=== PATIENT | male | born 1950 | race Caucasian/White ===

== ENCOUNTER 2016-05-22 17:47 | Emergency (ER) | payer OTHER ==
--- NOTE | 2016-05-22 19:15 | ED ---
Throat Pain/Nasal Congestion - HPI Summary HPI Summary: 65 male presents accompanied by his cousin with complaints of left eye discharge , swelling and pain and painless bilateral blurred vision that began a week ago and has been worsening. Patient's blurred vision began in left eye 1 week ago however 3 days ago the right eye began to become blurry as well. The left eye's blurred vision began after the swelling, redness and discharge of his lower lid. He states the discharge is pus like and both eyes are irritating. He sees an eye doctor who told him his "vision would go soon". He has known cataracts in both eyes. He denies complete vision loss and pain. Denies contacts and glasses. Admits to borderline diabetes that is uncontrolled and COPD. History was difficult to obtain due to patients mental capacity. Denies itchiness, photophobia, headache, numbness/tingling, weakness, dizziness and nausea. Denies getting anything into his and does not feel like there is anything in his eye. - History of Current Complaint Chief Complaint: EDEyeProblem Time Seen by Provider: 05/22/16 18:33 Hx Obtained From: Patient, Family/Telecommunications Line Mechanic - cousin Onset/Duration: Gradual Onset, Lasting Weeks, Still Present, Worse Since Severity: Mild Associated Signs And Symptoms: Positive: Negative Cough: None - Allergies/Home Medications Allergies/Adverse Reactions: Allergies Allergy/AdvReac Type Severity Reaction Status Date / Time Hydromorphone [From Dilaudid] AdvReac Mild See Comment Verified 05/22/16 17:52 PMH/Surg Hx/FS Hx/Imm Hx Endocrine/Hematology History: Reports: Hx Diabetes Cardiovascular History: Reports: Hx Congestive Heart Failure, Hx Hypertension, Other Cardiovascular Problems/Disorders - LT.BUNDLE BRANCH BLOCK & EF BELOW 20% (05/23) Denies: Hx Pacemaker/ICD Respiratory History: Reports: Hx Chronic Obstructive Pulmonary Disease (COPD), Other Respiratory Problems/Disorders - SOB Denies: Hx Asthma GI History: Denies: Other GI Disorders History: Denies: Hx Renal Disease Sensory History: Reports: Hx Contacts or Glasses - NO GLASSES TODAY. PT DOES NOT WEAR THEM Denies: Hx Hearing Aid Opthamlomology History: Reports: Hx Cataracts, Hx Contacts or Glasses - NO GLASSES TODAY. PT DOES NOT WEAR THEM Psychiatric History: Denies: Hx Panic Disorder - Surgical History Surgery Procedure, Year, and Place: pt seems drowsy - Immunization History Date of Tetanus Vaccine: PT STATES UNSURE Date of Influenza Vaccine: NONE Infectious Disease History: No Infectious Disease History: Denies: Traveled Outside the [place] in Last 30 Days - Family History Known Family History: Positive: Unknown - Social History Alcohol Use: None Alcohol Amount: states he quit 04/2013 Hx Substance Use: No Substance Use Type: Reports: None Hx Tobacco Use: No Smoking Status (MU): Never Smoked Tobacco Review of Systems Constitutional: Negative Positive: Blurred Vision, Drainage, Erythema, Other - swelling right eye ENT: Negative Cardiovascular: Negative Respiratory: Negative Gastrointestinal: Negative Musculoskeletal: Negative Skin: Negative Neurological: Negative Psychological: Normal All Other Systems Reviewed And Are Negative: Yes Physical Exam Triage Information Reviewed: Yes Vital Signs On Initial Exam: Initial Vitals Temp Pulse Resp BP Pulse Ox 97.8 F 104 20 170/102 98 05/22/16 17:52 05/22/16 17:52 05/22/16 17:52 05/22/16 17:52 05/22/16 17:52 BP noted, will be re-checked and monitored. strongly encouraged follow up with pcp as this and diabetes may be causing the vision changes. tachycardia also noted. Vital Signs Reviewed: Yes Appearance: Positive: Well-Appearing, No Pain Distress, Well-Nourished Skin: Positive: Warm, Skin Color Reflects Adequate Perfusion, Dry Head/Face: Positive: Normal Head/Face Inspection Eyes: Positive: EOMI, JENNI, Conjunctiva Inflammed, Discharge - appears to be a hordeolum, edema of lower left eye lid, internal and palpable. smooth edematous surface noted on inner lower conjunctiva. right eye normal external exam. difficult to obtain fundoscopic and slit lamp exam due to small pupil size. no emergent eye issues are apparent besides hordeolum at this time. patient had difficulty with visual acuity. no signs of acute angle glaucome or retinal detachment, possibly suffering from diabetic or hypertensive retinopathy. ENT: Positive: Normal ENT inspection, Hearing grossly normal, Pharynx normal, TMs normal Neck: Positive: Supple, Nontender, No Lymphadenopathy Respiratory/Lung Sounds: Positive: Clear to Auscultation, Breath Sounds Present Cardiovascular: Positive: Normal, RRR, Pulses are Symmetrical in both Upper and Lower Extremities Bowel Sounds: Positive: Present Musculoskeletal: Positive: Normal, Strength/ROM Intact Neurological: Positive: Normal, Sensory/Motor Intact, Alert, Oriented to Person Place, Time, CN Intact II-III, Reflexes Intact, NV Bundle Intact Distally, Normal Gait - escorted when walking due to blurred vision, Finger to Nose - abnormal, very slow, Facial Symmetry, Speech Normal, Other - patient appears to suffer from some MR. Negative: Facial Droop Psychiatric: Positive: Normal, Affect/Mood Appropriate - [place] Coma Scale Best Eye Response: 4 - Spontaneous Best Motor Response: 6 - Obeys Commands Best Verbal Response: 5 - Oriented Coma Scale Total: 15 Diagnostics - Vital Signs Vital Signs Temp Pulse Resp BP Pulse Ox 05/22/16 17:52 97.8 F 104 20 170/102 98 - Laboratory Lab Statement: Any lab studies that have been ordered have been reviewed, and results considered in the medical decision making process. - CT brain CT Interpretation: No Acute Changes - No intracranial mass or hemorrhage is noted. Opacification of the maxillary sinuses bilaterally. CT Interpretation Completed By: Radiologist EENT Course/Dx - Course Course Of Treatment: CT Brain ordered to rule out neurologic etiologies/tumors. Unable to assess fundoscopic exam due to the pupil size. CT negative. Hordeloum noted in left eye and will be treated with warm compresses, antibiotic ointment and follow up. Patient will be referred to optho for further evaluation of chronic worsening blurred vision, appears to be diabetic or hypertensive retinopathy. Patient did not appear to have any emergent eye problems, glaucoma , retinal detachment, etc at this time. educated and aware of worsening signs and symptoms to watch out for and to return if occur. follow up with pcp for hypertension. - Differential Diagnoses Differential Diagnoses: Conjunctivitis, Detached Retina, Foreign Body, Glaucoma , Keratitis, Uveitis, Other - Diagnoses Provider Diagnoses: Hordeolum externum left lower eyelid, Blurred vision, bilateral Discharge - Discharge Plan Condition: Stable Disposition: HOME Prescriptions: Polymyx/Trimethoprim OPTH* [Polytrim OPHTH*] 1 drop LEFT EYE Q3H #1 btl Patient Education Materials: [place] (ED) Referrals: Rafael Damico MD [Medical Doctor] - Tono Partida MD [Primary Care Provider] - Additional Instructions: Use prescribed eye medication to help with eye infection. Use hot compresses on eye every 15 minutes multiple time daily. Follow up with your eye doctor this week, call to make an appointment. Do not drive while your vision is blurry. If you lose your vision, new symptoms occur or you have worsening symptoms please seek medical attention promptly. Try and keep your fingers out of your eyes. Change pillow cases and wash towel to prevent spread of infection. Follow up with PCP for high blood pressure reading and today's visit.
--- NOTE | 2016-05-22 20:21 | RAD ---
Indication: Blurry vision. CT of the brain was performed without IV contrast. Ventricular structures are midline. No midline shift is noted. The extraction spaces are unremarkable. There is no evidence of intracranial mass or hemorrhage. No other high or low density lesions are identified. Maxillary sinuses demonstrate opacification bilaterally. No prior study is available for comparison. IMPRESSION: No intracranial mass or hemorrhage is noted. Opacification of the maxillary sinuses bilaterally.
[2016-05-22 20:50] VITALS: BP 165/77
== END 2016-05-22 20:49 | disposition home or self-care (01) ==
LOC: ED 17:47
DX: H00.015 Hordeolum externum left lower eyelid (principal); H53.8 Other visual disturbances
CPT/HCPCS: 70450; 99282

== ENCOUNTER 2016-12-20 08:35 | Inpatient (IN) | payer OTHER ==
[2016-12-20] MEDS ORDERED: Acetaminophen TAB* 325 MG PO PRN (13:23)
[2016-12-20] MEDS ORDERED: Magnesium Hydroxide LIQ* 30 ML UDC PO PRN (13:23)
[2016-12-20] MEDS ORDERED: Bisacodyl SUPP* 10 MG SUPP PR PRN (13:23)
[2016-12-20] MEDS ORDERED: Al Hydrox/Mg Hydrox/Simet LIQ* 30 ML UDC PO PRN (13:23)
[2016-12-20] MEDS ORDERED: Senna TAB PO PRN (13:23)
[2016-12-20] MEDS ORDERED: Albuterol 2.5 MG/3 ML NEB.SOL* (0.083%) INH PRN (13:39)
[2016-12-20] MEDS ORDERED: Dextrose 50% Syringe 50 ML* 25 GM/50 ML SYRINGE IV PUSH PRN (13:41)
[2016-12-20] MEDS ORDERED: HYDROcodone/ACETAMIN 5-325 MG* 1 TAB PO PRN (13:42)
--- NOTE | 2016-12-20 15:42 | HP ---
CC: Dr. Partida; Dr. Leach; Dr. Parker REHABILITATION ADMISSION: DATE OF ADMISSION: 12/20/16 PRIMARY CARE PROVIDER: Dr. Partida. MIXER OPERATOR RAW SALT: Dr. Leach. CARDIAC SURGEON: Dr. Parker at [facility]. REASON FOR ADMISSION: Status post 4-vessel coronary artery bypass grafts and non- ST elevation DE. HISTORY OF PRESENT ILLNESS: This is a 66-year-old man with COPD, who presented to [facility] on 12/10[facility]16 with headache, dizziness, chest pain, and shortness of breath. He was diagnosed with non-ST elevation myocardial infarction and also started empirically on antibiotics for pneumonia. Cardiac catheterization showed 3-vessel disease and his troponins peaked at 4.2. He was transferred to [facility] on 12/12/16 to consider further interventions. Carotid Doppler on 12/13/16 showed right internal carotid artery stenosis at 50% to 69% and left internal carotid artery stenosis 0% to 49 %. Antibiotics were stopped. He was taken to the OR on 12/13/16 for coronary artery bypass graft x4 - Sequential left internal mammary artery to the LAD, diagonal and sequential saphenous vein graft to the distal circumflex and high marginal. Postoperatively, he required dobutamine to try to keep his heart rate up and was noted to have third-degree AV block. A pacemaker was therefore placed on 12/16/16. Chest x-ray on 12/17/16 showed bilateral pleural effusions. He was diuresed. With Occupational Therapy, he has required a min- to-mod assistance for toileting and was noted to lose balance, requiring moderate amount of assistance to prevent falling. With Physical Therapy, he was transferring with contact guard assistance and ambulating with minimum assistance without any assistive device because he is legally blind. He was able to do 2 steps with contact guard assistance. Prior to admission, he was independent with mobility and activity of daily living, although his land lady who lives with in the same mobile home did assist him with medications and at times meals. At discharge, he was started on Plavix for acute coronary syndrome. During his stay, metformin was restarted for diabetes management and it was advised that he could restart Nesina which he was on preoperatively. He is to stay on a low- cholesterol diet. PAST MEDICAL HISTORY: 1. Coronary artery disease, status post 4-vessel CABG. See history of present illness. 2. History of AV block, status post pacemaker. See history of present illness. 3. COPD. 4. Cardiomyopathy with congestive heart failure. Most recent ejection fraction 30%. 5. Hypertension. 6. Hyperlipidemia. 7. Msq-pjutmbl-nmberjzrp diabetes mellitus. 8. 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 MEDICATIONS: 1. Metformin 500 mg b.i.d. 2. Demadex 10 mg Friday through Friday. 3. Vitamin B1 100 mg every day. 4. Aldactone 12.5 mg every day. 5. Nesina 25 mg every day. 6. Coreg 25 mg b.i.d. 7. Plavix 75 mg every day. 8. Lisinopril 5 mg every day. 9. Albuterol nebulizer q.4 hours p.r.n. 10. Lispro sliding scale insulin. 11. Adair 5/325 q.4 hours p.r.n. pain. 12. Tylenol p.r.n. pain. 13. Milk of magnesia p.r.n. 14. Senna 2 tablets every day. 15. Lipitor 80 mg every day. 16. Protonix 40 mg every day. 17. Multivitamin every day. 18. Aspirin 81 mg every day. 19. Digoxin 0.125 mg every day. 20. Mucinex 600 mg b.i.d. 21. Ativan 0.5 mg t.i.d. he was receiving, but this was not ordered with his discharge medications. Per his niece, this was helpful in dealing with some of his anxiety around procedures. ALLERGIES: HYDROMORPHONE causes rash. FAMILY HISTORY: Significant for coronary artery disease and hyperlipidemia. SOCIAL HISTORY: He lives in [place] in a trailer with his land lady. There are four steps to enter the trailer and then it is one level. He is not a smoker and does not drink alcohol. 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 Healthcare proxies include his brother, sister, and niece if he cannot make decisions for himself. Those papers are in file with the hospital already. REVIEW OF SYSTEMS: See history of present illness and past medical history. The remainder of the 13-system review was completed. No significant findings. PHYSICAL EXAMINATION GENERAL: Well-developed, well-nourished, appearing stated age. VITAL SIGNS: Temperature 98.2, pulse 80, respirations 20, oxygenation 98% on room air, blood pressure 115/70. HEENT: Normocephalic, atraumatic. Oropharynx is clear. Moist mucous membranes. LUNGS: Clear to auscultation bilaterally. HEART: Regular rate and rhythm. ABDOMEN: Active bowel sounds, soft, nontender, nondistended. EXTREMITIES: No clubbing or cyanosis. He does have bilateral lower extremity edema. NEUROLOGICAL EXAM: 5/5 strength bilateral upper and lower extremities with normal sensation, although he has limited testing of proximal upper extremity muscles due to sternal precautions and pacemaker precautions. MENTAL STATUS: No acute distress. Alert and appropriate. SKIN: His sternal incision is clean, dry, and intact. There is just minimal mild erythema distally. It is glued. The distal aspect of the saphenous vein graft site in his right leg was visualized and also appears benign. He has a dressing over his left chest from pacemaker implantation that is clean, dry, and intact. IMPRESSION: A 66-year-old man, status post 4-vessel CABG, NSTEMI, who is legally blind, chronic obstructive pulmonary disease and diabetes mellitus, who will be admitted to [facility], so he can return to independent living. PLAN: 1. Coronary artery disease, status post NSTEMI, 4v CABG and pacemaker placement. Continue with pacemaker and sternal precautions. Continue with current medications. He has followup with Dr. Parker on December 26 at 1 p.m. He is also to follow up with Dr. Leach in [address] Partida in 2 weeks. 2. Auv-jwmqpkj-ymhovivmh diabetes mellitus. Continue metformin and restart Nesina if it is available in this hospital. Check fingersticks q.a.c. and q.h.s. and cover with sliding insulin. If his fingersticks are stable, we may stop the insulin and fingersticks. 3. Hypertension. Continue with current medications. 4. Lower extremity edema. We will Tyrell wrap his legs and continue with his diuretic regimen. He is on appropriate medications already for a history of congestive heart failure and cardiomyopathy. 5. Chronic obstructive pulmonary disease and pleural effusions. Oxygen as needed. Continue with nebulizers as needed. 6. Anxiety. Ativan prn 7. Impaired mobility. He will be seen by Physical Therapy for bed mobility, transfer, gait, and stair training. Family will be trained if appropriate. 8. Impaired self-care. He will be seen by Occupational Therapy for ADL training and equipment evaluation. 9. Question impaired cognition. He does not read, but this at least partially is due to blindness. For guidance on how he may best be helped at discharge, we will ask for Speech Therapy to evaluate his cognitive status, so we can give better guidance on assistance he may need at discharge. He already has assistance with medications. 10. Advance directives. He does not want to be resuscitated. This was discussed with him and his niece and landlady who are in the room. Healthcare proxies on file with his brother, sister, and niece all named. 11. Estimated length of stay is 7 to 10 days. [id number]/CPS #: [id number] MTDD
[2016-12-20] MEDS: Torsemide TAB* 20 MG PO SCH (15:46)
[2016-12-20] MEDS: Atorvastatin* 80 MG TAB PO SCH (17:42)
[2016-12-20] MEDS: Insulin LISPRO* 1 UNITS UNIT SUBCUT SCH ×2 (17:42→21:10)
[2016-12-20] MEDS: LORazepam TAB(*) 0.5 MG PO PRN (17:43)
[2016-12-20] MEDS: metFORMIN* 500 MG TAB PO SCH (17:43)
[2016-12-20] MEDS: Docusate CAP* 100 MG PO SCH (19:43)
[2016-12-20] MEDS: Carvedilol TAB* 25 MG PO SCH (21:32)
[2016-12-20] MEDS: guaiFENesin ER TAB 600 MG PO SCH (21:32)
[2016-12-20] MEDS: Heparin VIAL(*) 5000 UNITS/ML VIAL (FIVE THOUSAND) SUBCUT SCH (21:33)
[2016-12-21] MEDS: LORazepam TAB(*) 0.5 MG PO PRN (01:15)
[2016-12-21 08:44] LABS: Hematocrit 33 % (42-52); Mean Corpuscular HGB Conc 34 g/dl (31-36); Mean Corpuscular Hemoglobin 31 pg (27-31); Mean Corpuscular Volume 91 fL (80-94); Mean Platelet Volume 9 um3 (7.4-10.4); Red Blood Count 3.58 10^6/ul (4.0-5.4); Red Cell Distribution Width 15 % (10.5-15); White Blood Count 8.8 10^3/ul (3.5-10.8)
[2016-12-21] MEDS ORDERED: ALOGLIPTIN 25 MG PO SCH (09:00)
[2016-12-21 09:03] LABS: Albumin 3.7 g/dL (3.2-5.2); BUN/Creatinine Ratio 16.2 (8-20); Calcium 9.6 mg/dL (8.6-10.3); EGFR African American 67.8 (>60); EGFR Non-African American 52.8 (>60); Globulin 3.5 g/dL (2-4); Potassium 4.1 mmol/L (3.5-5.0); Total Bilirubin 0.9 mg/dL (0.2-1.0); Total Protein 7.2 g/dL (6.4-8.9)
[2016-12-21] MEDS: Multivitamins/Minerals TAB PO SCH ×2 (09:05→12:22)
[2016-12-21] MEDS: Lisinopril TAB* 5 MG PO SCH (09:05)
[2016-12-21] MEDS: guaiFENesin ER TAB 600 MG PO SCH ×3 (09:06→21:10)
[2016-12-21] MEDS: Spironolactone TAB* 25 MG PO SCH (09:06)
[2016-12-21] MEDS: Carvedilol TAB* 25 MG PO SCH ×2 (09:11→21:10)
[2016-12-21] MEDS: metFORMIN* 500 MG TAB PO SCH ×2 (09:11→17:09)
[2016-12-21] MEDS: Aspirin EC Low Dose* 81 MG TAB.EC PO SCH (09:11)
[2016-12-21] MEDS: CMCS Pantoprazole TAB (NF) 40 MG TAB PO SCH (09:13)
[2016-12-21] MEDS: Digoxin TAB* 0.125 MG PO SCH (09:13)
[2016-12-21] MEDS: Clopidogrel TAB* 75 MG PO SCH (09:14)
[2016-12-21] MEDS: Docusate CAP* 100 MG PO SCH ×2 (09:14→20:06)
[2016-12-21] MEDS: Heparin VIAL(*) 5000 UNITS/ML VIAL (FIVE THOUSAND) SUBCUT SCH ×2 (10:23→21:08)
[2016-12-21] MEDS: Insulin LISPRO* 1 UNITS UNIT SUBCUT SCH ×4 (10:23→21:19)
--- NOTE | 2016-12-21 11:01 | PN ---
Progress Note - Progress Note Date of Service: 12/21/16 Note: Nursing and therapy note reviewed. Still completing evaluations, but passed speech cognitive screen. Denies any pain. He really wants to go home [place]. No chest pain, shortness of breath or abdominal pain. Bandar taylorugh in nesina. Acetaminophen (Tylenol Tab*) 650 mg PO Q6H PRN PRN Reason: FEVER > 101 Hydrocodone Bitart/Acetaminophen ([place] 5-325 Tab*) 1 tab PO Q4H PRN PRN Reason: PAIN Al Hydrox/Mg Hydrox/Simethicone (Maalox Plus*) 30 ml PO Q6H PRN PRN Reason: INDIGESTION Albuterol (Ventolin 2.5 Mg/3 Ml Neb.Tayler*) 2.5 mg INH Q4H PRN PRN Reason: SOB/WHEEZING Alogliptin Benzoate (Nesina (Nf)) 25 mg PO DAILY [facility] PRN Reason: Protocol Aspirin (Aspirin Ec Low Dose*) 81 mg PO DAILY [facility] Last Admin: 12/21/16 09:11 Dose: 81 mg Atorvastatin Calcium (Lipitor*) 80 mg PO 1700 [facility] Last Admin: 12/20/16 17:42 Dose: 80 mg Bisacodyl (Dulcolax Supp*) 10 mg CO DAILY PRN PRN Reason: CONSTIPATION Carvedilol (Coreg Tab*) 25 mg PO BID [facility] Last Admin: 12/21/16 09:11 Dose: 25 mg Clopidogrel Bisulfate (Plavix Tab*) 75 mg PO DAILY [facility] Last Admin: 12/21/16 09:14 Dose: 75 mg Dextrose (D50w Syringe 50 Ml*) 12.5 gm IV PUSH .FOR FS < 60 - SS PRN PRN Reason: FS < 60 Digoxin (Lanoxin Tab*) 0.125 mg PO 0900 [facility] Last Admin: 12/21/16 09:13 Dose: 0.125 mg Docusate Sodium (Colace Cap*) 100 mg PO BID [facility] Last Admin: 12/21/16 09:14 Dose: 100 mg Guaifenesin (Mucinex*) 600 mg PO BID [facility] Last Admin: 12/20/16 21:32 Dose: 600 mg Heparin Sodium (Porcine) (Heparin Vial(*)) 5,000 units SUBCUT Q12HR [facility] Last Admin: 12/21/16 10:23 Dose: 5,000 units Insulin Human Lispro (Humalog*) 1 units SUBCUT ACHS [facility] PRN Reason: Protocol Last Admin: 12/21/16 10:23 Dose: Not Given Lisinopril (Prinivil Tab*) 5 mg PO DAILY [facility] Last Admin: 12/21/16 09:05 Dose: 5 mg Lorazepam (Ativan Tab(*)) 0.5 mg PO TID PRN PRN Reason: ANXIETY Last Admin: 12/21/16 01:15 Dose: 0.5 mg Magnesium Hydroxide (Milk Of Magnesia Liq*) 30 ml PO Q6H PRN PRN Reason: CONSTIPATION Metformin HCl (Glucophage*) 500 mg PO 0800,1700 [facility] Last Admin: 12/21/16 09:11 Dose: 500 mg Multivitamins/Minerals (Theragran/Minerals Tab*) 1 tab PO DAILY [facility] Pantoprazole Sodium (Protonix Tab (Nf)) 40 mg PO DAILY [facility] Last Admin: 12/21/16 09:13 Dose: 40 mg Senna (Senokot Tab*) 2 tab PO BEDTIME PRN PRN Reason: CONSTIPATION Spironolactone (Aldactone Tab*) 12.5 mg PO DAILY [facility] Last Admin: 12/21/16 09:06 Dose: 12.5 mg Thiamine HCl (Vitamin B-1 Tab*) 100 mg PO DAILY [facility] Torsemide (Demadex*) 10 mg PO [id number]@0900 [facility] Last Admin: 12/20/16 15:46 Dose: 10 mg Vital Signs Temp Pulse Resp BP Pulse Ox 98.4 F 81 18 148/72 99 12/21/16 05:13 12/21/16 05:13 12/21/16 08:09 12/21/16 05:13 12/21/16 08:00 fingersticks 145-184 PE: GEN: no acute distress. alert and appropriate. LUNGS: clear bilaterally. CV: regular rate and rhythm. ABD: + bowel sounds, soft, non-tender, non-distended EXT: mild bilateral LE edema. unchanged. Refusing JUAN A or TEDs Laboratory Results - last 24 hr 12/20/16 12/20/16 12/20/16 13:15 16:32 20:52 WBC RBC Hgb Hct MCV MCH MCHC RDW Plt Count MPV Neut % (Auto) Lymph % (Auto) Holmes % (Auto) Eos % (Auto) Baso % (Auto) Absolute Neuts (auto) Absolute Lymphs (auto) Absolute Monos (auto) Absolute Eos (auto) Absolute Basos (auto) Absolute Nucleated RBC Nucleated RBC % Sodium Potassium Chloride Carbon Dioxide Anion Gap BUN Creatinine Est GFR ( Amer) Est GFR (Non-Af Amer) BUN/Creatinine Ratio Glucose POC Glucose (mg/dL) 167 H 184 H 145 H Calcium Total Bilirubin AST ALT Alkaline Phosphatase Total Protein Albumin Globulin Albumin/Globulin Ratio 12/21/16 12/21/16 12/21/16 07:46 08:35 08:35 WBC 8.8 RBC 3.58 L Hgb 11.0 L Hct 33 L MCV 91 MCH 31 MCHC 34 RDW 15 Plt Count 220 MPV 9 Neut % (Auto) 69.4 Lymph % (Auto) 12.6 L Holmes % (Auto) 12.7 H Eos % (Auto) 4.5 Baso % (Auto) 0.8 Absolute Neuts (auto) 6.1 Absolute Lymphs (auto) 1.1 Absolute Monos (auto) 1.1 H Absolute Eos (auto) 0.4 Absolute Basos (auto) 0.1 Absolute Nucleated RBC 0 Nucleated RBC % 0 Sodium 138 Potassium 4.1 Chloride 101 Carbon Dioxide 28 Anion Gap 9 BUN 22 Creatinine 1.36 H Est GFR ( Amer) 67.8 Est GFR (Non-Af Amer) 52.8 BUN/Creatinine Ratio 16.2 Glucose 146 H POC Glucose (mg/dL) 154 H Calcium 9.6 Total Bilirubin 0.90 AST 20 ALT 10 Alkaline Phosphatase 59 Total Protein 7.2 Albumin 3.7 Globulin 3.5 Albumin/Globulin Ratio 1.1 IMPRESSION/PLAN: 66yo man s/p NSTEMI, 4v CABG with COPD and DM. #CAD: f/u after discharge. To shower daily with soap and water #DM: start nesina today. on metformin. If FS better can d/c SSI and decrease FS frequency #Renal insufficiency: I reviewed labs from [facility] and Cr was as high as 1.7. On it was 1.2. His is now on less aggressive diuresis. f/u Cr friday. #Anxiety: ativan prn #DVT prophyllaxis: sc heparin. #Advanced Directives: DNR. Brother, sister and niece are HCPs. #Estimated LOS: to be discussed in interdisciplinary plan of care meeting today.
[2016-12-21] MEDS: ALOGLIPTIN 25 MG PO SCH (12:21)
[2016-12-21] MEDS: Thiamine TAB* 100 MG TAB PO SCH (12:23)
--- NOTE | 2016-12-21 12:27 | PMRUTEAM ---
PMRU: Goals Current Status: Physical therapy current status: supervision bed mobility, transfers and ambulation without assistive device. Supervision for 4 stairs. Occupational therapy current status: moderate assist for lower body dressing. refused to put on a shirt. supervision toileting and toilet transfers. bathing with max assist for cleaning chest and feet. Eating with set up. 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 She just had a total hip replacement and helps with medications and willing to help with meals, but no other physical assistance. There are 4 steps to enter. Plans to return to home. Goals: Physical therapy initial goals: indpendent bed mobility, transfers, ambulation and stairs without assistive device. Sit to stand from a low surface without using arms and without assistive device. Occupational therapy initial goals: modified independent dressing, bathing, toileting. Care Plan: Skin: wound/incision care with daily showers. Educate patient on importance of daily showers with soap and water. Prevent blood clots: mobilize with walks tid at least. Anxiety: inform patient of unit routines Blind: provide patient with a schedule and aides that he can see. Medicine Note: Length of Stay: [5 more days] Anticipated Discharge Destination: home Tentative Discharge Date: [12/26/16 ] Discharged to: [home]
[2016-12-21] MEDS: Atorvastatin* 80 MG TAB PO SCH (17:09)
[2016-12-22] MEDS: Insulin LISPRO* 1 UNITS UNIT SUBCUT SCH (07:25)
[2016-12-22] MEDS: ALOGLIPTIN 25 MG PO SCH (08:57)
[2016-12-22] MEDS: metFORMIN* 500 MG TAB PO SCH ×2 (08:58→17:24)
[2016-12-22] MEDS: Spironolactone TAB* 25 MG PO SCH (08:59)
[2016-12-22] MEDS: Carvedilol TAB* 25 MG PO SCH ×2 (09:00→20:57)
[2016-12-22] MEDS: Docusate CAP* 100 MG PO SCH ×2 (09:02→20:56)
[2016-12-22] MEDS: Digoxin TAB* 0.125 MG PO SCH (09:54)
[2016-12-22] MEDS: CMCS Pantoprazole TAB (NF) 40 MG TAB PO SCH (09:55)
[2016-12-22] MEDS: Lisinopril TAB* 5 MG PO SCH (10:01)
[2016-12-22] MEDS: Aspirin EC Low Dose* 81 MG TAB.EC PO SCH (10:02)
--- NOTE | 2016-12-22 10:08 | PN ---
Progress Note - Progress Note Date of Service: 12/22/16 Note: Nursing and therapy notes reviewed. He is in a better mood this morning than yesterday. Denies chest pain, shortness of breath or abdominal pain. He did better in his afternoon OT session yesterday. Vital Signs Temp Pulse Resp BP Pulse Ox 97.8 F 80 18 151/70 98 12/22/16 05:28 12/22/16 09:54 12/22/16 05:28 12/22/16 05:28 12/22/16 05:28 fingersticks 134-160 PE: GEN: no acute distress. alert and appropriate. LUNGS: clear bilaterally. CV: regular rate and rhythm. ABD: + bowel sounds, soft, non-tender, non-distended EXT: mild bilateral LE edema. unchanged. Refusing JUAN A or TEDs IMPRESSION/PLAN: 66yo man s/p NSTEMI, 4v CABG with COPD and DM. #CAD: has an appt with cardiac surgeon at [facility] 12/26 at 1pm. To shower daily with soap and water #DM: on home doses of nesina and metformin. d/c SSI and decrease FS frequency to qam. #Renal insufficiency: I reviewed labs from [facility] and Cr was as high as 1.7. On it was 1.2. His is now on less aggressive diuresis. f/u Cr friday. #Anxiety: ativan prn #DVT prophyllaxis: sc heparin. #Advanced Directives: DNR. Brother, sister and niece are HCPs. #Estimated LOS: anticipated d/c on 12/26, but he wants to leave [facility]. He was advised if he does better in OT this date can be moved up.
[2016-12-22] MEDS: Clopidogrel TAB* 75 MG PO SCH (11:26)
[2016-12-22] MEDS: Thiamine TAB* 100 MG TAB PO SCH (11:26)
[2016-12-22] MEDS: Multivitamins/Minerals TAB PO SCH (11:26)
[2016-12-22] MEDS: guaiFENesin ER TAB 600 MG PO SCH ×2 (11:26→20:56)
[2016-12-22] MEDS: Heparin VIAL(*) 5000 UNITS/ML VIAL (FIVE THOUSAND) SUBCUT SCH ×2 (11:33→20:58)
[2016-12-22] MEDS: Atorvastatin* 80 MG TAB PO SCH (17:24)
[2016-12-23] MEDS: Torsemide TAB* 20 MG PO SCH (08:35)
[2016-12-23] MEDS: guaiFENesin ER TAB 600 MG PO SCH ×2 (08:36→21:11)
[2016-12-23] MEDS: Multivitamins/Minerals TAB PO SCH (08:36)
[2016-12-23] MEDS: Lisinopril TAB* 5 MG PO SCH (08:36)
[2016-12-23] MEDS: metFORMIN* 500 MG TAB PO SCH ×2 (08:36→17:20)
[2016-12-23] MEDS: Thiamine TAB* 100 MG TAB PO SCH (08:36)
[2016-12-23] MEDS: Carvedilol TAB* 25 MG PO SCH ×2 (08:36→21:11)
[2016-12-23] MEDS: Aspirin EC Low Dose* 81 MG TAB.EC PO SCH (08:36)
[2016-12-23] MEDS: Docusate CAP* 100 MG PO SCH ×2 (08:36→20:57)
[2016-12-23] MEDS: CMCS Pantoprazole TAB (NF) 40 MG TAB PO SCH (08:36)
[2016-12-23] MEDS: Clopidogrel TAB* 75 MG PO SCH (08:36)
[2016-12-23] MEDS: ALOGLIPTIN 25 MG PO SCH (08:37)
[2016-12-23] MEDS: Spironolactone TAB* 25 MG PO SCH (08:38)
[2016-12-23] MEDS: Heparin VIAL(*) 5000 UNITS/ML VIAL (FIVE THOUSAND) SUBCUT SCH ×2 (08:40→21:11)
[2016-12-23 12:43] LABS: BUN/Creatinine Ratio 17.1 (8-20); Calcium 9.5 mg/dL (8.6-10.3); EGFR African American 65.6 (>60); Potassium 3.8 mmol/L (3.5-5.0)
--- NOTE | 2016-12-23 16:02 | PN ---
Progress Note - Progress Note Date of Service: 12/23/16 Note: Mert visited. Therapy notes read and reviewed. He is antsy to get home. Discussed his physical progress with PT and OT and they think he can safely go home tomorrow. Current Medications Acetaminophen (Tylenol Tab*) 650 mg PO Q6H PRN PRN Reason: FEVER > 101 Hydrocodone Bitart/Acetaminophen ([place] 5-325 Tab*) 1 tab PO Q4H PRN PRN Reason: PAIN Al Hydrox/Mg Hydrox/Simethicone (Maalox Plus*) 30 ml PO Q6H PRN PRN Reason: INDIGESTION Albuterol (Ventolin 2.5 Mg/3 Ml Neb.Tayler*) 2.5 mg INH Q4H PRN PRN Reason: SOB/WHEEZING Alogliptin Benzoate (Nesina (Nf)) 25 mg PO DAILY [facility] PRN Reason: Protocol Last Admin: 12/23/16 08:37 Dose: 25 mg Aspirin (Aspirin Ec Low Dose*) 81 mg PO DAILY [facility] Last Admin: 12/23/16 08:36 Dose: 81 mg Atorvastatin Calcium (Lipitor*) 80 mg PO 1700 [facility] Last Admin: 12/22/16 17:24 Dose: 80 mg Bisacodyl (Dulcolax Supp*) 10 mg [place] DAILY PRN PRN Reason: CONSTIPATION Carvedilol (Coreg Tab*) 25 mg PO BID [facility] Last Admin: 12/23/16 08:36 Dose: 25 mg Clopidogrel Bisulfate (Plavix Tab*) 75 mg PO DAILY [facility] Last Admin: 12/23/16 08:36 Dose: 75 mg Digoxin (Lanoxin Tab*) 0.125 mg PO 1700 [facility] Docusate Sodium (Colace Cap*) 100 mg PO BID [facility] Last Admin: 12/23/16 08:36 Dose: 100 mg Guaifenesin (Mucinex*) 600 mg PO BID [facility] Last Admin: 12/23/16 08:36 Dose: 600 mg Heparin Sodium (Porcine) (Heparin Vial(*)) 5,000 units SUBCUT Q12HR [facility] Last Admin: 12/23/16 08:40 Dose: 5,000 units Lisinopril (Prinivil Tab*) 5 mg PO DAILY [facility] Last Admin: 12/23/16 08:36 Dose: 5 mg Lorazepam (Ativan Tab(*)) 0.5 mg PO TID PRN PRN Reason: ANXIETY Last Admin: 12/21/16 01:15 Dose: 0.5 mg Magnesium Hydroxide (Milk Of Magnesia Liq*) 30 ml PO Q6H PRN PRN Reason: CONSTIPATION Metformin HCl (Glucophage*) 500 mg PO 0800,1700 [facility] Last Admin: 12/23/16 08:36 Dose: 500 mg Multivitamins/Minerals (Theragran/Minerals Tab*) 1 tab PO DAILY [facility] Last Admin: 12/23/16 08:36 Dose: 1 tab Pantoprazole Sodium (Protonix Tab (Nf)) 40 mg PO DAILY [facility] Last Admin: 12/23/16 08:36 Dose: 40 mg Senna (Senokot Tab*) 2 tab PO BEDTIME PRN PRN Reason: CONSTIPATION Spironolactone (Aldactone Tab*) 12.5 mg PO DAILY [facility] Last Admin: 12/23/16 08:38 Dose: 12.5 mg Thiamine HCl (Vitamin B-1 Tab*) 100 mg PO DAILY [facility] Last Admin: 12/23/16 08:36 Dose: 100 mg Torsemide (Demadex*) 10 mg PO [id number]@0900 [facility] Last Admin: 12/23/16 08:35 Dose: 10 mg Glucose Results Blood Glucose Monitoring POC Start: 12/20/16 13: 11 Freq: QAM Status: Active Protocol: Document 12/23/16 08:00 [id number] (Rec: 12/23/16 11:48 [id number] [id number]) Blood Glucose Monitoring POC Glucose Obtained Yes Glucose Result Being Addressed/Treated ( 118 mg/dL) Blood Glucose Method POC Glucose (bedside) Additional Actions Taken Nurse Notified Laboratory Results - last 24 hr 12/23/16 12/23/16 08:03 12:05 Sodium 135 Potassium 3.8 Chloride 100 L Carbon Dioxide 28 Anion Gap 7 BUN 24 Creatinine 1.40 H Est GFR ( Amer) 65.6 Est GFR (Non-Af Amer) 51.0 BUN/Creatinine Ratio 17.1 Glucose 109 H POC Glucose (mg/dL) 118 H Calcium 9.5 Vital Signs Temp Pulse Resp BP Pulse Ox 98.9 F 80 18 121/86 97 12/23/16 05:45 12/23/16 05:45 12/23/16 05:45 12/23/16 05:45 12/23/16 05:45 EXAM: LUNGS: Clear STERNUM: Wound clean, healing HEART: Reg rhythm ABDOMEN: Soft EXTREMITIES: 1+ edema in LEs ASSESSMENT/PLAN: 1. 4V CABG, Pacemaker: PT/OT. Diuresis. ASA/Lipitor/Coreg 2. Diabetes: Metformin/Alogliptin 3. Renal Insufficiency: Monitor Cr today 1.4 4. DVT Prophylaxis: Heparin S/Q 5. Advanced directives: DNR 6. LE Edema: Diuresis 7. Disposition: Home tomorrow after lunch
[2016-12-23] MEDS ORDERED: Digoxin TAB* 0.125 MG PO SCH (17:00)
[2016-12-23] MEDS: Atorvastatin* 80 MG TAB PO SCH (17:20)
[2016-12-24 06:26] VITALS: BP 156/65
[2016-12-24] MEDS: ALOGLIPTIN 25 MG PO SCH (08:14)
[2016-12-24] MEDS: Clopidogrel TAB* 75 MG PO SCH (08:14)
[2016-12-24] MEDS: Lisinopril TAB* 5 MG PO SCH (08:14)
[2016-12-24] MEDS: CMCS Pantoprazole TAB (NF) 40 MG TAB PO SCH (08:14)
[2016-12-24] MEDS: Thiamine TAB* 100 MG TAB PO SCH (08:15)
[2016-12-24] MEDS: Multivitamins/Minerals TAB PO SCH (09:52)
[2016-12-24] MEDS: guaiFENesin ER TAB 600 MG PO SCH (09:52)
[2016-12-24] MEDS: metFORMIN* 500 MG TAB PO SCH (09:52)
[2016-12-24] MEDS: Carvedilol TAB* 25 MG PO SCH (09:52)
[2016-12-24] MEDS: Spironolactone TAB* 25 MG PO SCH (10:01)
[2016-12-24] MEDS: Heparin VIAL(*) 5000 UNITS/ML VIAL (FIVE THOUSAND) SUBCUT SCH (10:02)
[2016-12-24] MEDS: Docusate CAP* 100 MG PO SCH (10:02)
[2016-12-24] MEDS: Torsemide TAB* 20 MG PO SCH (10:02)
[2016-12-24] MEDS: Aspirin EC Low Dose* 81 MG TAB.EC PO SCH (10:02)
--- NOTE | 2016-12-25 03:40 | DS ---
CC: Dr. Partida * PAIN CLINIC DISCHARGE SUMMARY: DATE OF ADMISSION: 12/20/16 DATE OF DISCHARGE: 12/24/16 DISCHARGE DIAGNOSES: 1. Status post 4-vessel coronary artery bypass graft. 2. Non-ST elevation myocardial infarction. 3. Status post pacemaker placement. 4. Cardiomyopathy with congestive heart failure. 5. Lnw-[id number] diabetes mellitus. 6. Hyperlipidemia. 7. Hypertension. HISTORY OF ILLNESS AND HOSPITAL COURSE: For complete history of the events leading up to his rehab stay, please see the history and physical dictated by Dr. Tanna Mckeon on 12/20/16. While on the rehab unit, the patient remained stable from a medical point of view. He was given his medications for diabetes. His fingersticks were in acceptable range. His creatinine while elevated remained stable. He was maintained on heparin for DVT prophylaxis. The patient was seen by both Physical and Occupational Therapy and made good gains with both disciplines. With physical therapy at the time of admission, the patient required supervision for transfers. He was able to ambulate with supervision with occupational therapy. He was supervision for toileting and toilet transfers. He required min assist for upper body dressing, mod assist for lower body dressing. The patient rapidly achieved functional independence. He was discharged home on 12/24/16. DISCHARGE DIET: Cardiac; consistent carbohydrate. DISCHARGE MEDICATIONS: Included: 1. Alogliptin 25 mg daily. 2. Aspirin 81 mg daily. 3. Lipitor 80 mg daily. 4. Coreg 25 mg twice daily. 5. Plavix 75 mg daily. 6. Digoxin 0.125 mg daily. 7. Lisinopril 5 mg daily. 8. Ativan 0.5 mg every 8 hours as needed with a maximum daily dose of 2. 9. Metformin 500 mg twice daily. 10. Protonix 40 mg daily. 11. Spironolactone 12.5 mg daily. 12. Demadex 10 mg Mondays, Tuesdays, Wednesdays, , and Fridays at 9 a.m. SERVICES AFTER DISCHARGE: Through visiting nurse service and home nursing and home physical therapy. He will follow up with Dr. Parker in 2 days. He will also follow up with his primary care doctor, Dr. Partida on 01/07/17, and he will also follow up with Dr. Leach, his seasonal sales associate on 01/07/17. [id number]/[facility] #: [id number] [email or web address]
== END 2016-12-24 11:35 | disposition home health service (06) | DRG 862 ==
LOC: PMRU 12:28
PROVIDERS: ADMIT Physical Medicine & Rehabilitation; ATTEND Physical Medicine & Rehabilitation
PROC: F07Z5ZZ Bed Mobility Treatment (ICD-10-PCS; principal; 2016-12-20)
PROC: F07Z9ZZ Gait Training/Functional Ambulation Treatment (ICD-10-PCS; 2016-12-20)
PROC: F07Z8ZZ Transfer Training Treatment (ICD-10-PCS; 2016-12-20)
PROC: F08Z0ZZ Bathing/Showering Techniques Treatment (ICD-10-PCS; 2016-12-20)
PROC: F08Z1ZZ Dressing Techniques Treatment (ICD-10-PCS; 2016-12-20)
PROC: F08Z3ZZ Feeding/Eating Treatment (ICD-10-PCS; 2016-12-20)
DX: Z48.812 Encounter for surgical aftercare following surgery on the circulatory system (principal); I21.4 Non-ST elevation (NSTEMI) myocardial infarction; I44.2 Atrioventricular block, complete; I11.0 Hypertensive heart disease with heart failure; I50.9 Heart failure, unspecified; E78.5 Hyperlipidemia, unspecified; E11.9 Type 2 diabetes mellitus without complications; H54.8 Legal blindness, as defined in USA; I25.119 Atherosclerotic heart disease of native coronary artery with unspecified angina pectoris; R60.0 Localized edema; F41.9 Anxiety disorder, unspecified; N28.9 Disorder of kidney and ureter, unspecified; Z79.01 Long term (current) use of anticoagulants; Z79.84 Long term (current) use of oral hypoglycemic drugs; Z95.1 Presence of aortocoronary bypass graft; Z95.0 Presence of cardiac pacemaker; Z88.8 Allergy status to other drugs, medicaments and biological substances; Z79.1 Long term (current) use of non-steroidal anti-inflammatories (NSAID); Z79.82 Long term (current) use of aspirin; Z79.899 Other long term (current) drug therapy; Z82.49 Family history of ischemic heart disease and other diseases of the circulatory system
CPT/HCPCS: 36415; 80048; 80053; 85025; A9270-GY; J1644

== ENCOUNTER 2019-01-29 19:24 | Emergency (ER) | payer MEDICARE, MEDICAID ==
--- NOTE | 2019-01-29 21:30 | ED ---
HPI Febrile Illness - HPI Summary HPI Summary: 68 year old male presents to the ED with a chief complaint of chills and shivering minutes [employer]. Patient also reports diaphoresis and mild anxiety. He denies CP, SOB, cough, myalgia, nausea, fever, and abdominal pain. Patient has a history of CHF, pacemaker, and is legally blind. Patient also has history of anxiety. He denies all work up, including laboratory. - History of Current Complaint Chief Complaint: EDGeneral Time Seen by Provider: 01/29/19 19:28 Hx Obtained From: Patient Onset/Duration: Started Minutes Ago, Resolved Initial Severity: Mild Current Severity: None Pain Intensity: 0 Pain Scale Used: 0-10 Numeric Associated Signs and Symptoms: Chills - Allergy/Home Medications Allergies/Adverse Reactions: Allergies Allergy/AdvReac Type Severity Reaction Status Date / Time bee venom protein (honey bee) Allergy Anaphylatic Verified 01/29/19 19:28 Shock MS Hydromorphone AdvReac Mild See Comment Verified 01/29/19 19:28 [From Iesha] Home Medications: Home Medications Carvedilol TAB* [Coreg TAB*] 25 mg PO BID 01/29/19 [History Confirmed 01/29/19] Clopidogrel TAB* [Plavix TAB*] 75 mg PO DAILY 01/29/19 [History Confirmed ] Digoxin TAB* [Lanoxin TAB*] 0.125 mg PO DAILY 01/29/19 [History Confirmed ] Hydrochlorothiazide TAB* [Hydrodiuril TAB*] 12.5 mg PO DAILY 01/29/19 [History Confirmed 01/29/19] Multivitamins/Minerals TAB* [Thera M Plus TAB*] 1 tab PO DAILY 01/29/19 [ History Confirmed 01/29/19] SitaGLIPtin (NF) [Januvia (NF)] 100 mg PO DAILY 01/29/19 [History Confirmed ] Valsartan TAB* [Diovan TAB*] 80 mg PO DAILY 01/29/19 [History Confirmed 01/29/19 ] metFORMIN* [Glucophage 850 MG TAB *] 850 mg PO BID 01/29/19 [History Confirmed 01/29/19] PMH/Surg Hx/FS Hx/Imm Hx Endocrine/Hematology History: Reports: Hx Diabetes Cardiovascular History: Reports: Hx Congestive Heart Failure, Hx Hypertension, Other Cardiovascular Problems/Disorders - LT.BUNDLE BRANCH BLOCK & EF BELOW 20% (05/23) Denies: Hx Pacemaker/ICD Respiratory History: Reports: Hx Chronic Obstructive Pulmonary Disease (COPD), Other Respiratory Problems/Disorders - SOB Denies: Hx Asthma GI History: Denies: Other GI Disorders History: Denies: Hx Renal Disease Sensory History: Reports: Hx Cataracts, Hx Contacts or Glasses, Hx Legally Blind Denies: Hx Hearing Aid Opthamlomology History: Reports: Hx Cataracts, Hx Contacts or Glasses, Hx Legally Blind Psychiatric History: Reports: Hx Anxiety, Hx Depression Denies: Hx Panic Disorder - Surgical History Surgery Procedure, Year, and Place: CABG 12/13/16. cataract removal. retina detachment - Immunization History Date of Tetanus Vaccine: PT STATES UNSURE Date of Influenza Vaccine: NONE Infectious Disease History: No Infectious Disease History: Denies: Traveled Outside the [place] in Last 30 Days - Family History Known Family History: Positive: Unknown, Other - Mother: [place] - Social History Alcohol Use: None Alcohol Amount: states he quit 04/2013 Hx Substance Use: No Substance Use Type: Reports: None Hx Tobacco Use: No Smoking Status (MU): Never Smoked Tobacco Review of Systems - ROS Summary Review of Systems Summary: Home Medications Medication Instructions Recorded Confirmed Type Acetaminophen TAB* [Tylenol TAB*] 650 mg PO Q4H PRN #0 tab 12/12/16 01/29/19 Rx Aspirin EC TAB* [Ecotrin EC Low 81 mg PO DAILY tab.ec 12/23/16 01/29/19 Rx Dose 81 MG*] Thiamine TAB* [Vitamin B-1 TAB 100 100 mg PO DAILY tab 12/23/16 01/29/19 Rx MG*] Carvedilol TAB* [Coreg TAB*] 25 mg PO BID 01/29/19 01/29/19 History Clopidogrel TAB* [Plavix TAB*] 75 mg PO DAILY 01/29/19 01/29/19 History Digoxin TAB* [Lanoxin TAB*] 0.125 mg PO DAILY 01/29/19 01/29/19 History Hydrochlorothiazide TAB* 12.5 mg PO DAILY 01/29/19 01/29/19 History [Hydrodiuril TAB*] Multivitamins/Minerals TAB* [Thera 1 tab PO DAILY 01/29/19 01/29/19 History M Plus TAB*] SitaGLIPtin (NF) [Januvia (NF)] 100 mg PO DAILY 01/29/19 01/29/19 History Valsartan TAB* [Diovan TAB*] 80 mg PO DAILY 01/29/19 01/29/19 History metFORMIN* [Glucophage 850 MG TAB 850 mg PO BID 01/29/19 01/29/19 History *] Positive: Chills, Skin Diaphoresis. Negative: Fever Negative: Chest Pain Negative: Shortness Of Breath, Cough Negative: Abdominal Pain, Nausea Negative: Myalgia Positive: Anxious All Other Systems Reviewed And Are Negative: Yes Physical Exam - Summary Physical Exam Summary: General: Well-developed, Well-nourished male. No acute distress. Mild speech impediment. HEENT: Normocephalic, Atraumatic. Eyes: Conjuctiva normal, PERRL. Legally blind bilaterally. Ears: TMs within normal limits. Nares: (-) discharge, (-) erythema. Oropharynx: Clear, mucous membranes moist, (-) exudates. Neck: Soft, FROM, (-) lymphadenopathy, (-) thyromegaly, (-) JVD. Cardiovascular: Normal sinus rhythm, (-) murmur. Lungs: Clear to auscultation bilaterally (-) wheezes, (-) rales, (-) rhonchi. Abdomen: Soft, non-tender, non-distended, (-) organomegaly, normal bowel sounds. Back: (-) CVA tenderness Extremities: No edema. Skin: Warm, dry, (-) rash. Neuro: Alert and oriented x3, no focal deficits. Psychiatric: Mood normal, affect normal. Triage Information Reviewed: Yes Vital Signs On Initial Exam: Initial Vitals Temp Pulse Resp BP Pulse Ox 97.6 F 108 16 161/91 98 01/29/19 19:26 01/29/19 19:26 01/29/19 19:26 01/29/19 19:26 01/29/19 19:26 Vital Signs Reviewed: Yes Procedures - Sedation Patient Received Moderate/Deep Sedation with Procedure: No Diagnostics - Vital Signs Vital Signs Temp Pulse Resp BP Pulse Ox 01/29/19 20:32 104 96 01/29/19 20:31 104 165/87 96 01/29/19 19:26 97.6 F 108 16 161/91 98 - Laboratory Lab Statement: Any lab studies that have been ordered have been reviewed, and results considered in the medical decision making process. Course/Dx - Course Course Of Treatment: 68 year old male presents with chills. He states earlier he felt cold. His coat on. Then he felt very flushed and warm. He is afebrile upon arrival. He denies any chest pain, cough, shortness of breath. No nausea vomiting or diarrhea. Been eating and drinking normally. Urinating without complaint. Patient's family believes that he became anxious when he had the chills thinking he may be getting sick. Patient declined any needles or lab studies. He states he feels fine at this time and would like to be discharged home. Patient advised he can return at any time. Otherwise follow- up with PCP. - Diagnoses Provider Diagnoses: Anxiety Discharge ED - Sign-Out/Discharge Documenting (check all that apply): Patient Departure - Discharge - Discharge Plan Condition: Stable Disposition: HOME Patient Education Materials: Anxiety (ED) Referrals: Tono Partida MD [Primary Care Provider] - Additional Instructions: Follow up with your primary care provider in 2-3 days. Return to the ED if you experience new or worsened symptoms. - Billing Disposition and Condition Condition: STABLE Disposition: Home - Attestation Statements Document Initiated by Sherry: Yes Documenting Scribe: Ranjith Franklin Provider For Whom Sherry is Documenting (Include Credential): Flora Bowens MD Scribe Attestation: Ranjith Salmeron, scribed for Flora Bowens MD on 01/30/19 at 0054. Scribe Documentation Reviewed: Yes Provider Attestation: The documentation as recorded by the juliaibRanjith vincent accurately reflects the service I personally performed and the decisions made by me, Flora Bowens MD Status of Scribe Document: Viewed
[2019-01-29 21:47] VITALS: BP 131/73
== END 2019-01-29 21:46 | disposition home or self-care (01) ==
LOC: ED 19:24
DX: F41.9 Anxiety disorder, unspecified (principal); I50.9 Heart failure, unspecified; Z95.0 Presence of cardiac pacemaker; J44.9 Chronic obstructive pulmonary disease, unspecified; E11.9 Type 2 diabetes mellitus without complications; I10 Essential (primary) hypertension; Z79.82 Long term (current) use of aspirin; Z79.899 Other long term (current) drug therapy
CPT/HCPCS: 99282

== ENCOUNTER 2020-06-04 12:25 | Inpatient (IN) ==
[2020-06-04] MEDS ORDERED: NS 0.9% 1000 ml BAG 1,000 ML IV ONE ×2 (13:51→16:43)
[2020-06-04 13:52] LABS: ABS Basophils 0.1 10^3/ul (0-0.2); ABS Monocytes 0.6 10^3/ul (0-0.8); ABS Neutrophils 6.8 10^3/ul (1.5-7.7); Eosinophil % 0.4 %; Hematocrit 44 % (42-52); Hemoglobin 14.6 g/dL (14.0-18.0); Lymphocyte % 11.7 %; Mean Corpuscular HGB Conc 33 g/dL (31-36); Mean Corpuscular Hemoglobin 30 pg (27-31); Mean Corpuscular Volume 91 fL (80-94); Mean Platelet Volume 9.4 fL (7.4-10.4); Platelet Count 298 10^3/uL (150-450); Red Blood Count 4.84 10^6 /uL (4.18-5.48); Red Cell Distribution Width 15 % (10-15); White Blood Count 8.5 10^3/uL (3.5-10.8)
[2020-06-04 14:12] LABS: ALT 7 U/L (7-52); AST 13 U/L (13-39); Albumin/Globulin Ratio 0.8 (1-3); Alkaline Phosphatase 70 U/L (34-104); Blood Urea Nitrogen 63 mg/dL (6-24); CO2 Carbon Dioxide 27 mmol/L (22-32); Calcium 11.8 mg/dL (8.6-10.3); Chloride 108 mmol/L (101-111); EGFR African American 48.9 (>60); EGFR Non-African American 40.4 (>60); Globulin 4.8 g/dL (2-4); Glucose 153 mg/dL (70-100); Potassium 4.1 mmol/L (3.5-5.0); Total Protein 8.8 g/dL (6.4-8.9)
[2020-06-04 14:15] LABS: Anion Gap 12 mmol/L (2-11); Sodium 147 mmol/L (135-145)
[2020-06-04 14:18] LABS: Troponin I 0.04 ng/mL (<0.03)
[2020-06-04 16:31] LABS: Troponin I 0.05 ng/mL (<0.03)
[2020-06-04] MEDS ORDERED: Iodixanol (CONTRAST) 320 MG/ML 100 ML SDV IV ONE (16:56)
[2020-06-04 17:15] LABS: Digoxin < 0.3 ng/ml (0.8-2.0)
[2020-06-04] MEDS ORDERED: D5W 1/2 NS 1000 ml BAG 1,000 ML IV SCH (18:00)
[2020-06-04] MEDS ORDERED: Dextrose 50% Syringe 50 ml 25 GM/50 ML SYRINGE IV PUSH PRN (18:21)
[2020-06-04 18:42] LABS: C Reactive Protein 30.92 mg/L (<8.01)
[2020-06-04 20:36] LABS: Troponin I 0.04 ng/mL (<0.03)
[2020-06-05 00:31] LABS: Blood Urea Nitrogen 60 mg/dL (6-24); CO2 Carbon Dioxide 26 mmol/L (22-32); Calcium 10.6 mg/dL (8.6-10.3); EGFR African American 59.2 (>60); EGFR Non-African American 48.9 (>60); Glucose 109 mg/dL (70-100); Potassium 3.8 mmol/L (3.5-5.0)
[2020-06-05 00:32] LABS: Anion Gap 9 mmol/L (2-11); Chloride 114 mmol/L (101-111); Sodium 149 mmol/L (135-145)
[2020-06-05 00:36] LABS: Troponin I 0.05 ng/mL (<0.03)
[2020-06-05] MEDS: Heparin 5000 UNITS/ML 1 mL VIAL SUBCUT SCH ×4 (00:36→21:30)
[2020-06-05] MEDS: D5W 1000 ml BAG 1,000 ML IV SCH ×2 (01:02→21:29)
[2020-06-05] MEDS: Albuterol 2.5mg/3 ml (0.083%) NEB.SOLN INH SCH ×4 (02:37→17:47)
[2020-06-05 04:24] LABS: ABS Monocytes 0.5 10^3/ul (0-0.8); ABS Neutrophils 7.7 10^3/ul (1.5-7.7); Eosinophil % 0.3 %; Hematocrit 41 % (42-52); Hemoglobin 13.9 g/dL (14.0-18.0); Lymphocyte % 10.4 %; Mean Corpuscular HGB Conc 34 g/dL (31-36); Mean Corpuscular Hemoglobin 30 pg (27-31); Mean Corpuscular Volume 90 fL (80-94); Mean Platelet Volume 9.5 fL (7.4-10.4); Platelet Count 280 10^3/uL (150-450); Red Blood Count 4.57 10^6 /uL (4.18-5.48); Red Cell Distribution Width 14 % (10-15); White Blood Count 9.2 10^3/uL (3.5-10.8)
[2020-06-05 04:40] LABS: Albumin 3.7 g/dL (3.2-5.2); Albumin/Globulin Ratio 0.8 (1-3); Globulin 4.6 g/dL (2-4); Indirect Bilirubin 0.5 mg/dL (0.3-1.0); Total Bilirubin 0.6 mg/dL (0.2-1.0); Total Protein 8.3 g/dL (6.4-8.9)
[2020-06-05 04:42] LABS: ALT 7 U/L (7-52); AST 13 U/L (13-39); Albumin 3.8 g/dL (3.2-5.2); Albumin/Globulin Ratio 0.8 (1-3); Alkaline Phosphatase 66 U/L (34-104); Blood Urea Nitrogen 56 mg/dL (6-24); CO2 Carbon Dioxide 26 mmol/L (22-32); Calcium 11.1 mg/dL (8.6-10.3); EGFR African American 59.7 (>60); EGFR Non-African American 49.3 (>60); Globulin 4.6 g/dL (2-4); Glucose 135 mg/dL (70-100); Potassium 3.7 mmol/L (3.5-5.0); Total Protein 8.4 g/dL (6.4-8.9)
[2020-06-05 04:49] LABS: Anion Gap 8 mmol/L (2-11); Chloride 113 mmol/L (101-111); Sodium 147 mmol/L (135-145)
[2020-06-05 04:50] LABS: Troponin I 0.05 ng/mL (<0.03)
[2020-06-05 04:50] LABS: Urine Appearance Clear; Urine Color Yellow
[2020-06-05 04:54] LABS: Urine Blood Negative (Negative); Urine Ketones Trace (Negative); Urine Nitrite Negative (Negative); Urine Protein 1+(30 mg/dL) (Negative); Urine Urobilinogen Negative (Negative)
[2020-06-05 04:55] LABS: Urine Bilirubin Negative (Negative); Urine Glucose Negative (Negative)
[2020-06-05 05:14] LABS: Urine Bacteria 1+ (Absent); Urine Red Blood Cell Absent (Absent); Urine Squamous Epithelial Cell Present (Absent); Urine White Blood Cell Trace(0-5/hpf) (Absent)
[2020-06-05] MEDS ORDERED: Albuterol 2.5mg/3 ml (0.083%) NEB.SOLN INH PRN (18:34)
[2020-06-05 19:59] LABS: Calcium 10.6 mg/dL (8.6-10.3); EGFR African American 67.8 (>60); EGFR Non-African American 56.1 (>60); Potassium 3.7 mmol/L (3.5-5.0)
[2020-06-06 05:17] LABS: Calcium 10.2 mg/dL (8.6-10.3); EGFR African American 67.2 (>60); EGFR Non-African American 55.6 (>60); Potassium 3.4 mmol/L (3.5-5.0)
[2020-06-06] MEDS: Heparin 5000 UNITS/ML 1 mL VIAL SUBCUT SCH ×3 (05:45→22:20)
[2020-06-06] MEDS ORDERED: D5W 1000 ml BAG 1,000 ML IV SCH (16:57)
[2020-06-06] MEDS ORDERED: Lidocaine 2% PF 5 ML VIAL ONE (17:31)
[2020-06-06] MEDS: D5W 1000 ml BAG 1,000 ML IV SCH (22:22)
[2020-06-07 04:28] LABS: ABS Eosinophils 0.1 10^3/ul (0-0.6); ABS Lymphocytes 1.2 10^3/ul (1.0-4.8); ABS Monocytes 0.6 10^3/ul (0-0.8); ABS Neutrophils 5.7 10^3/ul (1.5-7.7); Eosinophil % 1.2 %; Hematocrit 34 % (42-52); Hemoglobin 11.8 g/dL (14.0-18.0); Lymphocyte % 15.2 %; Mean Corpuscular HGB Conc 35 g/dL (31-36); Mean Corpuscular Hemoglobin 30 pg (27-31); Mean Corpuscular Volume 88 fL (80-94); Mean Platelet Volume 9.6 fL (7.4-10.4); Platelet Count 190 10^3/uL (150-450); Red Blood Count 3.88 10^6 /uL (4.18-5.48); Red Cell Distribution Width 14 % (10-15); White Blood Count 7.6 10^3/uL (3.5-10.8)
[2020-06-07 04:43] LABS: Calcium 10.2 mg/dL (8.6-10.3); EGFR African American 79.1 (>60); EGFR Non-African American 65.4 (>60); Magnesium 1.7 mg/dL (1.9-2.7); Potassium 3.3 mmol/L (3.5-5.0)
[2020-06-07] MEDS: Heparin 5000 UNITS/ML 1 mL VIAL SUBCUT SCH ×3 (05:28→21:29)
[2020-06-07] MEDS ORDERED: KCL 10 MEQ/50 ML IVPREMIX 10 MEQ/50 ML BAG IV ONE (07:49)
[2020-06-07] MEDS ORDERED: Magnesium Sulfate IV 3 GM in NS 0.9% 100 ml BAG 100 ML IVPB ONE (09:00)
[2020-06-07] MEDS: D5W 1000 ml BAG 1,000 ML IV SCH (14:33)
[2020-06-07] MEDS ORDERED: Iodixanol (CONTRAST) 320 MG/ML 100 ML SDV IV ONE (17:04)
[2020-06-08] MEDS: Heparin 5000 UNITS/ML 1 mL VIAL SUBCUT SCH ×3 (05:04→23:42)
[2020-06-08 06:05] LABS: Calcium 9.7 mg/dL (8.6-10.3); EGFR African American 81.6 (>60); EGFR Non-African American 67.5 (>60); Potassium 3.5 mmol/L (3.5-5.0)
[2020-06-08] MEDS: D5W 1/2 NS 1000 ml BAG 1,000 ML IV SCH (10:33)
[2020-06-08] MEDS ORDERED: Ondansetron 4 mg VIAL 2 MG/ML 2 ml VIAL IV PRN (14:45)
[2020-06-08] MEDS ORDERED: DiMENhydriNATE IV 50 mg/ml 1 ml VIAL IV PUSH PRN (14:45)
[2020-06-08] MEDS ORDERED: Naloxone 0.4 mg VIAL 0.4 mg/ml 1 ml VIAL IV PRN (14:45)
[2020-06-08] MEDS ORDERED: oxyCODONE/Acetamin 5/325 mg TAB PO PRN (14:45)
[2020-06-08] MEDS ORDERED: fentaNYL 100 mcg/2 ml 50 MCG/ML VIAL IV PRN (14:45)
[2020-06-08] MEDS ORDERED: ceFAZolin 2 GM PREMIX 2 GM/50 ML BAG ONE (15:19)
[2020-06-08] MEDS ORDERED: fentaNYL 100 mcg/2 ml 50 MCG/ML VIAL ONE (15:47)
[2020-06-08] MEDS ORDERED: Ketamine HCL 50 mg/ml 10 ml VIAL (500 MG) ONE (15:47)
[2020-06-08] MEDS ORDERED: Midazolam 2 mg/2 ml VIAL 1 mg/ml 2 ml VIAL (2 mg) ONE (15:48)
[2020-06-09] MEDS ORDERED: Morphine 2 MG/ML SYRINGE IV ONE (03:38)
[2020-06-09 05:50] LABS: Hematocrit 38 % (42-52); Mean Corpuscular HGB Conc 34 g/dL (31-36); Mean Corpuscular Hemoglobin 30 pg (27-31); Mean Corpuscular Volume 88 fL (80-94); Mean Platelet Volume 9.6 fL (7.4-10.4); Platelet Count 165 10^3/uL (150-450); Red Cell Distribution Width 14 % (10-15); White Blood Count 9.8 10^3/uL (3.5-10.8)
[2020-06-09] MEDS: Heparin 5000 UNITS/ML 1 mL VIAL SUBCUT SCH ×3 (06:49→22:41)
[2020-06-09] MEDS: D5W 1/2 NS 1000 ml BAG 1,000 ML IV SCH (11:40)
[2020-06-09] MEDS: Morphine 2 MG/ML SYRINGE IV PRN (12:22)
[2020-06-10] MEDS: Morphine 2 MG/ML SYRINGE IV PRN ×2 (05:00→18:16)
[2020-06-10] MEDS: Heparin 5000 UNITS/ML 1 mL VIAL SUBCUT SCH ×3 (05:01→21:52)
[2020-06-10 05:57] LABS: Calcium 9.5 mg/dL (8.6-10.3); EGFR African American 81.6 (>60); EGFR Non-African American 67.5 (>60); Magnesium 1.7 mg/dL (1.9-2.7); Potassium 3.3 mmol/L (3.5-5.0)
[2020-06-10] MEDS ORDERED: Sodium Bicarb 650 mg (ANTACID) TAB PO ONE (10:00)
[2020-06-10] MEDS ORDERED: Pancrelipase 5,000 units CAP G TUBE ONE (10:00)
[2020-06-10] MEDS ORDERED: Magnesium Sulfate 2 gm BAG 2 GM/50 ML BAG IVPB ONE (13:53)
[2020-06-10] MEDS ORDERED: KCL 20 MEQ/100 ML IVPREMIX 20 MEQ/100 ML BAG IV ONE (13:54)
[2020-06-11 05:59] LABS: Calcium 9.2 mg/dL (8.6-10.3); EGFR African American 79.1 (>60); EGFR Non-African American 65.4 (>60); Potassium 3.5 mmol/L (3.5-5.0)
[2020-06-11] MEDS: Heparin 5000 UNITS/ML 1 mL VIAL SUBCUT SCH ×3 (06:05→21:32)
[2020-06-12] MEDS: Heparin 5000 UNITS/ML 1 mL VIAL SUBCUT SCH ×2 (05:34→14:40)
[2020-06-12 08:37] LABS: Calcium 9.2 mg/dL (8.6-10.3); EGFR African American 79.1 (>60); EGFR Non-African American 65.4 (>60); Magnesium 1.9 mg/dL (1.9-2.7); Potassium 3.8 mmol/L (3.5-5.0)
[2020-06-12] MEDS ORDERED: Senna TAB 8.6 mg TAB PO PRN (14:46)
[2020-06-12] MEDS ORDERED: Ondansetron 4 mg VIAL 2 MG/ML 2 ml VIAL IV PRN (14:47)
[2020-06-12] MEDS ORDERED: Enoxaparin 40 MG/0.4 ML SYR SUBCUT SCH ×2 (16:00→21:00)
[2020-06-14 07:28] VITALS: BP 124/53
== END 2020-06-14 10:10 | disposition hospice, inpatient (51) ==
LOC: ED 12:25 → SSU 23:09
PROVIDERS: ADMIT Pediatrics; ATTEND Internal Medicine